=== PATIENT | female | born 2000 | race Two or more races ===

== ENCOUNTER 2022-01-22 14:20 | Emergency (ER) | payer MEDICAID ==
[~2022-01-22] VITALS: Ht 162.6 cm; Wt 205.0 kg
[2022-01-22] MEDS ORDERED: PRED20TA2 PO (17:35)
[2022-01-22] MEDS ORDERED: HYDR50CA PO (17:35)
[2022-01-22 17:45] VITALS: BP 110/72
== END 2022-01-22 18:05 | disposition home or self-care (01) ==
LOC: ER 14:20
DX: L42 Pityriasis rosea (principal); Z79.899 Other long term (current) drug therapy; Z88.1 Allergy status to other antibiotic agents